=== PATIENT | female | born 1955 | race Caucasian/White ===

== ENCOUNTER → 2017-01-22 | Day surgery (SDC) | payer OTHER ==
[~2017-01-22] VITALS: Ht 157.5 cm; Wt 62.4 kg
[~2017-01-22] MED LIST: BACITRACIN TOP OINT 15 GM TUBE ONE; CALC500T37 PO; CHLORHEXIDINE GLUCONATE 2 % 1 PACK (2 CLOTHS) TOPICAL PRN; DEXAMETHASONE SOD PHOS 4 MG/ML VIAL IV ONE; DO NOT ADM ANY ANTICOAGULANT DRUGS PRN; FISH100020 PO; INSULIN HUMAN REGULAR 1,000 UNITS/10 ML VIAL SQ PRN; LACTATED RINGER'S 1000 ML IV PRN; LIDOCAINE 1%/EPINEPHrine 1:100,000 SOLN 20 ML VIAL ONE; LIDOCAINE HCL 1% PF 5 ML AMPULE OTHER ONE; METOPROLOL TARTRATE 25 MG TAB PO PRN; MUCI30TA2 PO; ONDANSETRON HCL 4 MG/2 ML VIAL IV PUSH ONE; OXYMETAZOLINE HCL 0.05% 15 ML NASAL SPRAY ONE; POVIDONE IODINE 5% (ANTISEPSIS KIT) 4 APPLICATIONS EACH NARE PRN; PROPOFOL 200 MG/20 ML AMP IV ONE; ROCURONIUM INJ 50 MG/5 ML SYRINGE IV PUSH ONE; SODIUM CHLORID 0.9% 500 ML IV PRN; SUGAMMADEX SODIUM 200 MG/2 ML VIAL IV PUSH ONE; VITA1000 PO; oxyCODONE/ACETAMINOPHEN 5 MG/325 MG TAB PO PRN
[2017-01-22 10:45] VITALS: BP 153/56; PULSE 85; RESP 20; TEMP 98.3; O2SAT 100
--- NOTE | 2017-01-22 12:20 | EKG ---
Date Performed: 01/22/2017 Time Performed: 07:07:39 PTAGE: 61 years EKG: Sinus rhythm POSSIBLE LEFT ATRIAL ENLARGEMENT BORDERLINE ECG NO PREVIOUS TRACING Nonspecific ST-T changes in the inferior leads DOCTOR: Aravind Rodriguez Interpretating Date/Time 01/22/2017 12:16:17
--- NOTE | 2017-01-24 13:18 | MP ---
cc: VITOR DACOSTA MD DATE OF SURGERY: 01/22/2017 PREOPERATIVE DIAGNOSIS Nasal obstruction. POSTOPERATIVE DIAGNOSIS Nasal obstruction. PROCEDURE PERFORMED Septoplasty, inferior turbinate reduction and bilateral maxillary antrostomies. ANESTHESIA General endotracheal. COMPLICATIONS None. FLUID REPLACEMENT 600 mL. ESTIMATED BLOOD LOSS 10 mL. INDICATION FOR PROCEDURE This is a 61-year-old female with chronic nasal obstruction and maxillary sinusitis deemed to require surgical intervention after failure of maximal medical therapy. The risks and benefits were described in detail. The patient understood these and wished to proceed as planned. DESCRIPTION OF OPERATIVE COURSE After informed consent was obtained, the patient was taken to the operating room placed in the operating room and placed supine on the operating table. General endotracheal anesthesia was initiated following which the patient was prepped and draped in standard surgical fashion. Once completed an operative timeout was undertaken. Once everyone was in agreement the procedure moved forward as planned. 1% lidocaine with epinephrine was injected into the anterior septum. Approximately 4 cc was used bilaterally. Once this was completed Afrin-soaked pledgets were inserted into the patient's nasal cavity to allow proper decongestant to take place, following which a left hemitransfixion incision was made through the mucosa down to the cartilage. A left mucoperichondrial flap was elevated past the bony cartilaginous junction. A small incision was made in the anterior septal cartilage 1 cm centimeter dorsal to the columella and a right mucoperichondrial flap was elevated past the bony cartilaginous junction. At this time the curvilinear portion of the quadrangular cartilage was removed leaving a 1 cm dorsal strut and a 1 cm anterior strut for nasal support. Once this completed it was morcellized and placed back into the nasal cavity. The mucoperichondrial flaps were then re-approximated. A whipstitch was performed in standard fashion and the hemitransfixion incision was closed using 4-0 chromic suture in interrupted fashion. Once this completed a stab incision was made into the inferior turbinates bilaterally and using the Turbinator with the Coblator device submucous resection was performed on the bilateral inferior turbinates until the edematous mucosa was completely removed. The mucosa was laid back in approximation to the bone and the stab incision was closed using 3-0 chromic suture in interrupted fashion. Once this completed and inferior uncinectomy was performed, widely opened the maxillary antrum bilaterally. Inspissated mucus was suctioned out of the maxillary sinuses bilaterally. Once this completed Dalton splints were placed into the patient's nasal cavity and sutured into place using a 2-0 Prolene. This marked the end of the procedure. The patient tolerated the procedure well, was awoken, extubated and transferred to PACU in stable condition. Vitor Dacosta AT/WATSON /12:47 PM /1:04 PM
== END | disposition home or self-care (01) ==
LOC: HSDC 06:04
PROVIDERS: ATTEND Otolaryngology
DX: J34.89 Other specified disorders of nose and nasal sinuses (principal); J34.2 Deviated nasal septum; J31.0 Chronic rhinitis; J34.3 Hypertrophy of nasal turbinates; R51 Headache; Z01.810 Encounter for preprocedural cardiovascular examination
CPT/HCPCS: 00160; 30140; 30520; 31020; 93005; J1100; J2405; J3010; J7120